=== PATIENT | male | born 1985 | race Caucasian/White ===

== ENCOUNTER → 2017-06-29 | Outpatient (REF) | payer OTHER | LOC: M SFHCLERA 20:31 | DX: R50.9 Fever, unspecified (principal) ==

== ENCOUNTER → 2018-03-31 | Outpatient (REF) | payer OTHER | LOC: M SFHCLERA 20:41 | DX: J02.9 Acute pharyngitis, unspecified (principal) ==

== ENCOUNTER 2018-06-22 11:43 | Emergency (ER) | payer OTHER ==
[~2018-06-22] VITALS: Ht 175.3 cm; Wt 81.8 kg
[2018-06-22] MEDS ORDERED: KETOROLAC 60 MG/2 ML VIAL (J1885) IM ONE (13:15)
[2018-06-22] MEDS ORDERED: ONDANSETRON 4 MG ORAL DISINTEGRATING TAB (Q0162 PER 1MG) PO ONE (13:15)
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
[2018-06-22] MEDS ORDERED: ONDA4TAB6 PO (14:53)
[2018-06-22] MEDS ORDERED: IBUP-1114 PO (14:53)
[2018-06-22 15:00] VITALS: BP 145/80
== END 2018-06-22 15:02 | disposition home or self-care (01) ==
LOC: M ED 11:43 → EDBD 11:43 → M ED 15:02
DX: S06.0X0A Concussion without loss of consciousness, initial encounter (principal); V49.49XA Driver injured in collision with other motor vehicles in traffic accident, initial encounter; Y92.410 Unspecified street and highway as the place of occurrence of the external cause
CPT/HCPCS: 70450; 72125; 73590; 96372; 99284; J1885; Q0162